=== PATIENT | female | born 1990 | race Caucasian/White ===

== ENCOUNTER 2021-12-27 15:06 | Outpatient (CLI) | payer BC, SELFPAY ==
[2021-12-27 15:56] VITALS: BP 136/65; PULSE 93
--- NOTE | 2021-12-27 16:08 | PC.NURSE ---
1554- Spoke with Dr. Reed, patient presents for leaking about an hour ago. ROM plus negative. NST reactive. Orders to discharge to home.
== END 2021-12-27 15:07 | disposition home or self-care (01) ==
LOC: ANHOBOP 16:03
PROVIDERS: Visit Provider Obstetrics & Gynecology Gynecology
DX: O41.8X90 Other specified disorders of amniotic fluid and membranes, unspecified trimester, not applicable or unspecified (principal); Z3A.00 Weeks of gestation of pregnancy not specified
CPT/HCPCS: 59025; 84112

== ENCOUNTER 2021-12-29 09:15 | Inpatient (IN) | payer BC, SELFPAY ==
[2021-12-29] VITALS (28 sets, daily range): BP systolic 118–153; BP diastolic 50–92; PULSE 42–94; RESP 18–20; TEMP 36.3–36.7; BMI 46.7
--- NOTE | 2021-12-29 09:59 | LDADM ---
This patient, Sydni Topete, was admitted to Labor/Delivery/Recovery 104 on 12/29/21 at 09:05. Plans for labor, pain management and were discussed with patient. Patient/family oriented to hospital policies and general routines including ID bracelet, bed and alarms, visiting hours, pain management, procedures, bathroom and other care routines, personal items, smoking policy, room service/diet and guest tray routines, security routines, and visiting hours. Patient/Family are encouraged to report perceived risks to care and to ask questions if they do not understand what they are told or what they should do. See OBIX for further documentation.
[2021-12-29 10:12] LABS: Basophils Percent Auto 0.3 % (0.2-1.2); Eosinophils Absolute Auto 0.3 K/mm3 (0-0.3); Eosinophils Percent Auto 2.7 % (0-4.4); Hematocrit 35.6 % (37.0-47.0); Hemoglobin 11.9 g/dL (12.0-15.0); Immature Granulocyte Absolute 0.08 K/mm3 (0.00-0.031); Immature Granulocyte Percent A 0.8 % (0-0.5); Lymphocytes Absolute Auto 1.67 K/mm3 (0.9-3.2); Lymphocytes Percent Auto 17.7 % (18.3-44.2); Mean Corpuscular HGB Conc 33.4 g/dl (32-36); Mean Corpuscular Hemoglobin 30.9 pg (26-34); Mean Corpuscular Volume 92.5 fl (80-100); Mean Platelet Volume 12.3 fl (7.4-10.4); Monocytes Absolute Auto 0.6 K/mm3 (0.1-0.6); Monocytes Percent Auto 5.8 % (2.6-8.5); Neutrophils Absolute Auto 6.9 K/mm3 (1.3-6.7); Neutrophils Percent Auto 72.7 % (45.5-73.1); Platelet Count Result 197 k/mm3 (150-375); Red Blood Count 3.85 M/mm3 (4.2-5.4); White Blood Count 9.5 K/mm3 (4.5-10.0)
[2021-12-29] MEDS: miSOPROStol 25 MCG TABLET VAGINAL (10:15)
[2021-12-29 10:22] LABS: Alanine Aminotransferase 17 U/L (4-35); Albumin Level 3.1 g/dL (3.5-5.1); Alkaline Phosphatase 89 U/L (38-126); Anion Gap 6 mmol/L (8-16); Aspartate Amino Transferase 32 U/L (14-36); Bilirubin,Total 0.2 mg/dL (0.2-1.3); Blood Urea Nitrogen 5 mg/dL (7-17); Carbon Dioxide 18 mmol/L (22-30); Chloride 111 mmol/L (98-107); Estimated Glomerular Filt Rate > 60; Glucose 112 mg/dL (65-110); Potassium 3.8 mmol/L (3.4-5.0); Sodium 135 mmol/L (137-145)
[2021-12-29 10:27] LABS: Uric Acid 5.6 mg/dL (2.5-7.5)
--- NOTE | 2021-12-29 13:48 | WPDOBADMIT ---
Obstetrics - Admit Note Admission Note: record reviewed. No pertinent additions to the history and/or any subsequent changes in the physical findings that are not consistent with the expected course of the were found. Additions to the history and/or subsequent changes in the physical findings follow. Sent from office with BP 160/110. Complaint of nausea this am and epigastric pain. Good FM. No visual changes. Plan MIL with cytotec. Cervix cl/50/2 Vtx.
[2021-12-29 14:20] LABS: Rapid Plasma Reagin Non-Reactive (NonReactive)
[2021-12-29] MEDS: miSOPROStol 50 MCG TABLET VAGINAL ×2 (14:20→20:55)
--- NOTE | 2021-12-29 19:04 | WPDANESEPP ---
Anes - Eval Pre Procedure Procedure: labor epidural Date/Time: 12/29/21 19:04 Surgeon: sumeet Preop Diagnosis: pain during labor Pre Op Diagnosis: IOL Patient Data Age: 31 Gender: F Height: 1.83 m Weight: 156.3 kg Last Vital Signs Temp 36.6 C 12/29/21 18:51 Pulse 70 12/29/21 18:34 Resp 18 12/29/21 17:28 BP 144/91 H 12/29/21 18:34 Allergies Allergy/AdvReac Type Severity Reaction Status Date / Time No Known Allergies Allergy Verified 12/14/21 15:46 Home Medications Medication Instructions Recorded Confirmed Type cetirizine [Zyrtec] 10 mg PO DAILY 12/14/21 12/29/21 History ergocalciferol (vitamin D2) 1,250 mcg PO [id number] 12/14/21 12/29/21 History [Vitamin D2] prenat.vits,stacey,syd-xcem-doeop 1 tablet PO HS 12/14/21 12/29/21 History [ #2] valacyclovir [Valtrex] 500 mg PO Q12H 12/14/21 12/29/21 History Laboratory Tests 12/29/21 12/29/21 12/29/21 09:57 09:57 09:57 WBC 9.5 K/mm3 K/mm3 (4.5-10.0) RBC 3.85 M/mm3 L M/mm3 (4.2-5.4) Hgb 11.9 g/dL L g/dL (12.0-15.0) Hct 35.6 % L % (37.0-47.0) MCV 92.5 fl fl (80-100) MCH 30.9 pg pg (26-34) MCHC 33.4 g/dl g/dl (32-36) RDW 13.0 % % (11.5-14.5) Plt Count 197 k/mm3 k/mm3 (150-375) MPV 12.3 fl H fl (7.4-10.4) Immature Gran % (Auto) 0.8 % H % (0-0.5) Neut % (Auto) 72.7 % % (45.5-73.1) Lymph % (Auto) 17.7 % L % (18.3-44.2) [place] % (Auto) 5.8 % % (2.6-8.5) Eos % (Auto) 2.7 % % (0-4.4) Baso % (Auto) 0.3 % % (0.2-1.2) Lymph # (Auto) 1.67 K/mm3 K/mm3 (0.9-3.2) [place] # (Auto) 0.6 K/mm3 K/mm3 (0.1-0.6) Eos # (Auto) 0.3 K/mm3 K/mm3 (0-0.3) Baso # (Auto) 0.0 K/mm3 K/mm3 (0.0-0.1) Abs Immat Gran (auto) 0.08 K/mm3 H K/mm3 (0.00-0.031) Absolute Neuts (auto) 6.9 K/mm3 H K/mm3 (1.3-6.7) Absolute Nucleated RBC 0.0 K/mm3 K/mm3 (0.0-0.012) Nucleated RBC % 0.0 % % (0.0-0.2) Sodium Potassium Chloride Carbon Dioxide Anion Gap BUN Creatinine Estim Creat Clear Calc Estimated GFR Glucose Uric Acid 5.6 mg/dL mg/dL (2.5-7.5) Calcium Total Bilirubin AST ALT Alkaline Phosphatase Total Protein Albumin RPR Non-reactive (NonReactive) Blood Type Antibody Screen 12/29/21 12/29/21 09:57 09:57 WBC RBC Hgb Hct MCV MCH MCHC RDW Plt Count MPV Immature Gran % (Auto) Neut % (Auto) Lymph % (Auto) [place] % (Auto) Eos % (Auto) Baso % (Auto) Lymph # (Auto) [place] # (Auto) Eos # (Auto) Baso # (Auto) Abs Immat Gran (auto) Absolute Neuts (auto) Absolute Nucleated RBC Nucleated RBC % Sodium 135 mmol/L L mmol/L (137-145) Potassium 3.8 mmol/L mmol/L (3.4-5.0) Chloride 111 mmol/L H mmol/L (98-107) Carbon Dioxide 18 mmol/L L mmol/L (22-30) Anion Gap 6 mmol/L L mmol/L (8-16) BUN 5 mg/dL L mg/dL (7-17) Creatinine 0.60 mg/dL L mg/dL (0.7-1.0) Estim Creat Clear Calc Not Reportable Estimated GFR > 60 (59 - ) Glucose 112 mg/dL H mg/dL (65-110) Uric Acid Calcium 9.0 mg/dL mg/dL (8.4-10.2) Total Bilirubin 0.2 mg/dL mg/dL (0.2-1.3) AST 32 U/L U/L (14-36) ALT 17 U/L U/L (4-35) Alkaline Phosphatase 89 U/L U/L (38-126) Total Protein 6.0 g/dL L g/dL (6.3-8.2) Albumin 3.1 g/dL L g/dL
[2021-12-30] VITALS (228 sets, daily range): BP systolic 98–152; BP diastolic 46–97; PULSE 26–138; TEMP 36.5–37.3; O2SAT 82–100
[2021-12-30] MEDS: LACTATED RINGERS 1,000 ML 125 ML IV CONT ×3 (01:25→18:10)
[2021-12-30] MEDS: OXYTOCIN 30 UNITS/NS 500 ML 30 UNITS/500 ML BAG IV CONT (01:26)
[2021-12-30] MEDS: fentaNYL CITRATE INJ (*CRX) 100 MCG/2 ML VIAL IV PUSH ×2 (05:29→08:04)
--- NOTE | 2021-12-30 07:49 | PM.OBPNLAB ---
Pain Control Date/time seen: 12/30/21 07:49 Comments: Breathing through contractions, requesting epidural Pelvic Exam Comments: 1.5cm per last RN exam. Contractions Monitor mode: External Contraction pattern: Regular Status status: Category l Assessment and Plan Assessment: induction ongoing Plan: continuous present management
[2021-12-30] MEDS: ONDANSETRON INJ 4 MG/2 ML VIAL IV PUSH (19:02)
[2021-12-30] MEDS: LIDOCAINE HCL 1% LOCAL INJ 10 ML VIAL (21:20)
[2021-12-30] MEDS: miSOPROStol 200 MCG TABLET 1000 MCG (21:35)
--- NOTE | 2021-12-30 21:41 | PM.OBPRVD ---
OB - Delivery Note Procedure Delivery date: 12/30/21 Procedure: Events: Gestational Hypertension Induction method: AROM, Per Misoprostol Protocol and Per Pitocin Protocol Delivery monitor: External FHT and Internal Uterine Route of delivery: Laceration Description: Perineal - 3rd Degree (partial ) Delivery repair: vicryl (0 and 3-0) Specimen: Yes (placenta) Quantitative Blood Loss (ml): 500 Anesthesia type: Local Disposition: Floor Narrative: Once head delivered, patient instructed to continue pushing for shoulders as RN was placing bed flat and assistants were continuing Anjana position. Shoulder delivered without dystocia. Baby Date of : 12/30/21 Weeks of gestation at delivery: 38 gender: Male Weight (pounds): 9 Weight (ounces): 9 presentation: vertex position: Right Occiput Anterior Placenta delivery description: Spontaneous Cord Vessel Description: 3 Vessels score one minute: 9 score five minutes: 9
--- NOTE | 2021-12-30 21:44 | P.DS_ITS ---
DS: Admitting Diagnosis Discharge Date 01/01/22 Admitting Diagnosis PIH at 38 4/7 wks for PATO DS: Discharge Diagnosis Discharge Diagnosis (1) 38 weeks gestation of : Code(s): Z3A.38 - 38 weeks gestation of Status: Acute (2) PIH ( induced hypertension): Code(s): O13.9 - Gestational [-induced] hypertension without significant proteinuria, unspecified trimester Status: Acute (3) (normal spontaneous vaginal delivery): Code(s): O80 - Encounter for full-term uncomplicated delivery Status: Acute OB - DS: Summary OB Procedures : Ultrasound OB Procedures Intrapartum: Spontaneous Vag Delivery OB Procedures: : None Peripartum Data Infant Delivery Method: Natural Vaginal Laceration Description: Perineal - 3rd Degree (partial) Status at Discharge Functional status at discharge: independent ambulation Overall status at discharge: patient is progressing back to baseline Time Spent with Patient Time attestation: Total time spent providing and/or coordinating discharge services: Discharge Plan Discharge Discharging Clinician: Annabelle Reed Anticipated Discharge Date/Time: 01/01/22 21:46 Patient Disposition: Home, Self-Care Activity: may shower, may drive after 2 weeks and pelvic rest Diet: regular Patient Instructions: Antibiotic Form Stand Alone Forms: General Discharge Information Follow-up/Referrals: Annabelle Reed MD [Physician] - 6 Weeks (and 1 week for BP check) Discharge Medications: Continued cetirizine [Zyrtec] 10 mg Tablet 10 mg PO DAILY RF: 0 valacyclovir [Valtrex] 500 mg Tablet 500 mg PO Q12H RF: 0 ergocalciferol (vitamin D2) [Vitamin D2] 1,250 mcg (50,000 unit) Capsule 1,250 mcg PO [id number] RF: 0 #2 Tablet 1 tablet PO HS RF: 0 Date of admission: 12/29/21 09:15 Primary Care Provider: PHYSICIAN,INSPECTOR AUTOMATIC TYPEWRITER Admitting Provider: Annabelle Reed Attending physician on admission: Annabelle Reed Condition: Stable
[2021-12-30] MEDS: WITCH HAZEL 40 PADS 1 PAD TOPICAL (23:48)
[2021-12-30] MEDS: BENZOCAINE 20% AER SPR (*SP) 56 GM CAN 1 SPRAY TOPICAL (23:48)
[2021-12-30] MEDS: IBUPROFEN 600 MG TABLET PO (23:48)
[2021-12-31] VITALS (7 sets, daily range): BP systolic 110–144; BP diastolic 53–80; PULSE 74–91; RESP 18–24; TEMP 36.4–37.1; O2SAT 99
--- NOTE | 2021-12-31 00:04 | OBPPTRN ---
Patient transferred to post room #290 via W/C. Support person present. Oriented to unit, room, information board, rooming in, admission packet and security measures. Patient verbalizes understanding.
[2021-12-31] MEDS: ACETAMINOPHEN 325 MG TABLET 650 MG PO ×3 (04:28→20:29)
[2021-12-31 05:22] LABS: Hematocrit 32.6 % (37.0-47.0); Hemoglobin 10.7 g/dL (12.0-15.0)
--- NOTE | 2021-12-31 07:40 | PM.OBPNVD ---
OB - PN: Subj Subjective Date/time seen: 12/31/21 07:40 Patient comments: no complaints and pain well controlled baby status: doing well OB - PN: Obj Data Labs CBC & Chem 7: 12/31/21 04:36 12/29/21 09:57 Labs: Laboratory Results - last 24 hr 12/31/21 04:36 Hgb 10.7 L Hct 32.6 L OB - PN A/P Assessment and Plan (1) PIH ( induced hypertension): Code(s): O13.9 - Gestational [-induced] hypertension without significant proteinuria, unspecified trimester Status: Acute Assessment and Plan: BP good. No diuresis yet. Continue to observe. Plan day: 1 Plan: routine care Time Spent With Patient Time: Total time spent is greater than 50% in coordination of care (as documented) at patient's floor/unit and/or counseling patient: Exam : Bimanual exam- vagina & uterus: other (Uterus firm, nt @U)
[2021-12-31] MEDS: valACYclovir HCL 500 MG TABLET PO ×2 (09:51→20:29)
[2021-12-31] MEDS: DOCUSATE SODIUM 100 MG CAPSULE PO (09:51)
[2021-12-31] MEDS: MULTIVIT/MIN/PREN/FOL AC/IRON TABLET 1 TAB PO (09:51)
[2021-12-31] MEDS: IBUPROFEN 600 MG TABLET PO ×3 (09:51→22:27)
[2021-12-31] MEDS: POLYSACCHARIDE IRON COMPLEX 150 MG CAPSULE PO (09:52)
--- NOTE | 2021-12-31 14:01 | PC.NURSE ---
[id number] Introductions were made, then consulted with patient to assess needs related to . Mother led the conversation with her experience feeding her so far. Mother works well with her with encouragement and education. Reviewed good handwashing to prevent infection. Encouraged understanding of the benefits of skin to skin (unwrapping infant and placing vertically on her chest), responsive feeding and how to watch for early feeding signs, frequency of feeding on demand about every 8-12 times in 24 hours (every 2-3 hours), milk production, duration of feeding, signs of adequate intake/output and how to record on the feeding sheet. Reviewed positioning and ear, shoulder, hip alignment, supporting the breast, asymmetrical latch (off-center), and leading with the chin with a big open side gape. Infant is sleepy and reluctant at this time. Mother demonstrates understanding of education regarding hand expression. Colostrum was finger fed to infant. When infant is skin to skin vertically between mother's breast he sleeps most of the time, rarely doesn't he show feeding cues, or cries with stimulation. In the football position he cries loudly or falls asleep. After discussing feeding options with mother and the risk and benefits of each decision mother decides to pump her breast at this time. Breast pump provided due to ineffective and mother's choice. Instructions given on cleaning, care, usage, there should be no pain, pumping schedule for milk production, collection, and storage of human milk. Parents are encouraged to record pumping schedule on the feeding sheet. Patient was assessed for correct placement, flange size, to pump for comfort and nipple stretching/stimulation for adequate milk production. Drops of colostrum are finger fed to her infant. Resources used to facilitate learning were used with the visual handouts/mom and baby guide. Mother voiced understanding of responsive feedings, stimulating with skin to skin, hand expressed colostrum, touch, talking to infant to encourage if it has been 2 -3 hours since the start of the last , to call if infant does not latch or there is discomfort with . Reported to the primary RN. [id number] Consulted with patient to assess needs related to . Mother works well with her with encouragement. Reviewed working with infant, breast, nipples and how to protect the nipples with an optimal deep latch, good positioning, and good hand washing. Encouraged understanding the benefits of skin to skin, responding to feeding cues, frequencies of feeding 8-12 times in 24 hours (approximately 2-3 hours), duration of feedings, milk production, intake/output feeding sheet and signs of adequate intake encouraging swallowing at the breast. Reviewed positioning and alignment, supporting breast, off-centered (asymmetrical latch) and leading with the chin with big open wide gape. is attempting with more energy than earlier this morning. Infant either latches shallow and pinches the tip of the nipple or doesn't latch. Mother pumped her breast and infant was finger fed the colostrum drops. Maternal mother supplemented infant with formula per mother's preference after risk and benefits of feeding choices were discussed. Resources used to facilitate learning were used from the mom and baby guide. Mother voiced understanding of the education shared, calling for assistance if the does not latch or if there is discomfort with . Reported to the primary RN.
--- NOTE | 2021-12-31 14:29 | WPDANLDPN2 ---
Anes-Prog Note L&D Date/Time: 12/31/21 14:29 Comfortable throughout: labor and delivery Neuraxial method: epidural Epidural/Spinal procedure site: clean & non-tender Neuro status: Neuro function grossly intact. Cardiovascular status: normal Respiratory status: normal Airway patency: baseline Mental status: baseline Post-Op hydration status: normal Vital Signs: Last Vital Signs Temp 36.4 C L 12/31/21 12:26 Pulse 91 12/31/21 12:26 Resp 24 H 12/31/21 12:26 BP 144/57 H 12/31/21 12:26 Pulse Ox 99 12/31/21 12:26 Pain score (VAS): 0 I/O: Intake & Output 12/30/21 12/31/21 12/31/21 23:59 07:59 15:59 Intake Total 600 920 Output Total 1500 700 400 Balance -1500 -100 520 Post-procedural complaints: none Patient feedback: Patient satisfied with anesthetic care.
--- NOTE | 2021-12-31 15:51 | PC.NURSE ---
[id number] Consulted with patient to assist with her feeding plan. Mother works well with her with encouragement. Reviewed working with infant, breast, nipples and how to protect the nipples with an optimal deep latch, and good positioning. Mother understands the benefits of skin to skin, responding to feeding cues, frequencies of feeding 8-12 times in 24 hours (approximately 2-3 hours), duration of feedings, milk production, intake/output feeding sheet and signs of adequate intake encouraging swallowing at the breast. Reviewed positioning and alignment, supporting breast, off-centered (asymmetrical latch) and leading with the chin with big open wide gape. is not latching or attempting to latch. Mother pumps as RN finger feeds infant colostrum with a gloved finger. Infant begins to occasionally show feeding cues, then sleeps or cries. Discussed supplementing infant and attempting again at the next feeding. Reviewed early feeding cues to work with infant early before the late feeding signs present. has been supplemented with paced feeding. Maternal mother has been actively involved with care this afternoon. Resources used to facilitate learning were used from the tool/mom and baby guide. Mother voiced understanding of the education shared, calling for assistance if the infant does not latch or if there is discomfort with . Reported to the primary RN.
[2022-01-01] VITALS: BP 144/72; PULSE 72; RESP 20; TEMP 36.6
[2022-01-01] MEDS: IBUPROFEN 600 MG TABLET PO ×2 (04:36→11:13)
[2022-01-01] MEDS: ACETAMINOPHEN 325 MG TABLET 650 MG PO ×2 (04:37→11:14)
[2022-01-01 04:40] VITALS: BP 135/70; PULSE 86; RESP 20; TEMP 36.6
[2022-01-01 07:30] VITALS: PULSE 86; RESP 20; O2SAT 99
--- NOTE | 2022-01-01 07:59 | PM.OBPNVD ---
OB - PN: Subj Subjective Date/time seen: 01/01/22 07:59 Patient comments: no complaints and pain well controlled baby status: doing well and nursing well (working with retail client solutions consultant) OB - PN: Obj Data Labs CBC & Chem 7: 12/31/21 04:36 12/29/21 09:57 OB - PN A/P Assessment and Plan (1) PIH ( induced hypertension): Code(s): O13.9 - Gestational [-induced] hypertension without significant proteinuria, unspecified trimester Status: Acute Assessment and Plan: Good BP and diuresis. No sx. BP check in 1 wk Plan day: 2 Plan: routine care, discharge home and follow up 6 weeks Time Spent With Patient Time: Total time spent is greater than 50% in coordination of care (as documented) at patient's floor/unit and/or counseling patient: Exam : Bimanual exam- vagina & uterus: other (Uterus firm, nt @U)
[2022-01-01 08:45] VITALS: BP 131/51; PULSE 83; RESP 18; TEMP 36.8; O2SAT 99
[2022-01-01] MEDS: DOCUSATE SODIUM 100 MG CAPSULE PO (09:31)
[2022-01-01] MEDS: valACYclovir HCL 500 MG TABLET PO (09:31)
[2022-01-01] MEDS: MULTIVIT/MIN/PREN/FOL AC/IRON TABLET 1 TAB PO (09:31)
--- NOTE | 2022-01-01 13:35 | PC.NURSE ---
Patient viewed the discharge video Mother & Baby Care, The First Two Weeks . Patient was given the opportunity and encouraged to ask questions. Patient verbalized understanding of information shared and has been given the mother/baby guide for home reference.
[2022-01-04 11:40] VITALS: BP 148/87; PULSE 63; RESP 20; TEMP 37; O2SAT 100
== END 2022-01-01 14:25 | disposition home or self-care (01) | DRG 768 ==
LOC: ANHLDR 12-30 21:46 → ANHOB2 12-31 00:05
PROVIDERS: Admitting Provider Obstetrics & Gynecology Gynecology; Visit Provider Obstetrics & Gynecology Gynecology
DX: O13.4 Gestational [pregnancy-induced] hypertension without significant proteinuria, complicating childbirth (principal); Z37.0 Single live birth; O98.32 Other infections with a predominantly sexual mode of transmission complicating childbirth; Z3A.38 38 weeks gestation of pregnancy; O70.20 Third degree perineal laceration during delivery, unspecified; O66.0 Obstructed labor due to shoulder dystocia; B00.9 Herpesviral infection, unspecified
CPT/HCPCS: 36415; 80053; 84550; 85014; 85018; 85025; 86592; 86850; 86900; 86901; A9270; J2405; J2590; J2795; J3010; J7120